=== PATIENT | male | born 2000 | race Caucasian/White ===

== ENCOUNTER → 2019-01-26 | Outpatient (REF) | payer OTHER | LOC: M LAB REF 09:14 | PROVIDERS: ATTEND Otolaryngology | DX: D21.0 Benign neoplasm of connective and other soft tissue of head, face and neck (principal) ==

== ENCOUNTER 2019-02-13 06:47 | Day surgery (SDC) | payer OTHER ==
[~2019-02-13] VITALS: Ht 170.2 cm; Wt 65.2 kg
[2019-02-13] MEDS ORDERED: LIDOCAINE 2% INJ 100 MG/5 ML SDV (FOR ANES.) As Ordered ONE (07:50)
[2019-02-13] MEDS ORDERED: PROPOFOL 200 MG/20 ML VIAL As Ordered ONE (07:50)
[2019-02-13] MEDS ORDERED: MIDAZOLAM INJ 2 MG/2 ML VIAL (J2250) As Ordered ONE (07:51)
[2019-02-13] MEDS ORDERED: fentaNYL 100 MCG/2 ML INJECTION (J3010) As Ordered ONE (07:51)
[2019-02-13] MEDS ORDERED: LR 1,000 ML IV ONE (08:00)
[2019-02-13] MEDS ORDERED: LIDOCAINE W/EPINEPHRINE 1% 20ML VIAL As Ordered ONE (08:41)
[2019-02-13] MEDS ORDERED: dexameTHASONE 4 MG/ML 1ML VIAL (J1100) As Ordered ONE (09:21)
[2019-02-13] MEDS ORDERED: ONDANSETRON 4MG/2ML VIAL (J2405) As Ordered ONE ×2 (09:21→10:04)
[2019-02-13] MEDS ORDERED: BACITRACIN OINT 30GM As Ordered ONE (09:37)
[2019-02-13] MEDS ORDERED: PERCOCET 5MG/325MG TAB As Ordered ONE (10:04)
[2019-02-13] MEDS ORDERED: METOCLOPRAMIDE INJ 10MG/2ML VIAL (J2765) IV PRN (10:30)
[2019-02-13] MEDS ORDERED: PERCOCET 5MG/325MG TAB PO PRN (10:30)
[2019-02-13] MEDS ORDERED: LR 1,000 ML IV SCH (10:30)
[2019-02-13] MEDS ORDERED: ONDANSETRON 4MG/2ML VIAL (J2405) IV PRN (10:30)
[2019-02-13] MEDS ORDERED: fentaNYL 100 MCG/2 ML INJECTION (J3010) IV PRN (10:30)
[2019-02-13 11:00] VITALS: BP 135/81
--- NOTE | 2019-02-13 18:18 | RO ---
DATE OF PROCEDURE: 02/13/2019 PREOPERATIVE DIAGNOSIS: Left lower forehead lesion with evidence of slight erosion of the external table of the calvarium. POSTOPERATIVE DIAGNOSIS: Left lower forehead lesion with evidence of slight erosion of the external table of the calvarium. FINDINGS: Compatible with epidermal cyst with erosion. OPERATION PERFORMED: Excision of the left deep forehead lesion under general via LMA; initial attempts with sedation - patient could not tolerate staying still. SURGEON: Trey Multani Jr, MD HAT SIZER: ANESTHESIA: Waylon Richardson CRNA and also Dr. Viveros, the anesthesiologist. DESCRIPTION OF PROCEDURE: With the patient in supine position, initial attempts with sedation with injection, the patient could not tolerate and would not stay still; therefore he was converted over to general via LMA. Once this was done, injection resumed with approximately 2-1/2 to 3 mL of 1% lidocaine 1:100,000 epinephrine. Approximately a 2-1/2 cm incision was made over the upper lateral aspect of the eyebrow. Dissection was done with tenotomy and iris scissors carefully around the mass. The mass was identified, and it appeared to be somewhat cystic in structure. It measured about 1 1/2 by 2 cm. It appears that it had eroded through portions of the external calvarium; this was carefully dissected out with the tenotomy scissors. This was compatible with an epidermal cyst. There was some cystic fluid component present. This was completely dissected out. There was a small rupture at the inferior aspect of the lesion where it seemed to erode underneath part of the table of the external calvarium. This was then cleaned out and sent as a separate piece and then copiously irrigated. Once this was done, control of the bleeding was performed, followed by closure of the muscular layer and the subcuticular layer with #4-0 Vicryl and the skin with #5-0 Prolene. There were no problems. No complications. Control of the patient was turned back over to the anesthesiologist. Bacitracin ointment was applied. Estimated blood loss was less than a mL. MTDD
== END 2019-02-13 11:15 | disposition home or self-care (01) ==
LOC: M SDC 06:47
PROVIDERS: ATTEND Otolaryngology
DX: L72.0 Epidermal cyst (principal); Z72.0 Tobacco use
CPT/HCPCS: 11442; 13131; 88305; J1100; J2250; J2405; J3010

== ENCOUNTER → 2019-07-17 | Outpatient (CLI) | payer OTHER ==
--- NOTE | 2019-07-17 16:20 | REP ---
RIGHT RIB SERIES: Four views of the right ribs are performed. No fracture or bone lesion is seen. An accompanying view of the chest demonstrates no acute infiltrate. Heart and mediastinum are within normal limits. IMPRESSION: Negative right rib series. Electronically Signed by Gildardo Huitron MD 07/19/2019 11:05 P
== END ==
LOC: M LRY 15:12
PROVIDERS: ATTEND Nurse Practitioner Family
DX: R07.81 Pleurodynia (principal)
CPT/HCPCS: 71101; G0463